=== PATIENT | female | born 1980 | race Caucasian/White ===

== ENCOUNTER → 2021-02-01 | Outpatient (CLI) | payer OTHER ==
--- NOTE | 2021-02-01 14:42 | RAD ---
[facility] DIAGNOSTIC BILAT, US BREAST RT 02/01/2021 1:00 PM INDICATION: Right breast lump. COMPARISON: None available TECHNIQUE: 2D CC and MLO projections were obtained of each breast. Targeted sonographic evaluation th e right breast was performed. FINDINGS: Breast density: Category C: The breats are heterogeneously dense, which may obscure small masses. Right breast: There are no suspicious microcalcifications, masses or areas of architectural distortio n. Left breast: There are no suspicious microcalcifications, masses or areas of architectural distortion . Targeted ultrasound evaluation of the right breast was performed at the 6:00 position, 5 cm from the nipple in the area of concern, 6:00 position 2 cm from the nipple, 5:00 position, 7:00 position and r etroareolar region. At the 6:00 position, 2 cm from the nipple there is a 5 x 4 x 3 mm circumscribed hypoechoic mass with through transmission and suggestion of internal septations. Probably benign findings with differenti al considerations including a complicated or complex cyst. IMPRESSION: 1. Probably benign findings of the right breast with a 5 x 4 x 3 mm mass which may represent a compli cated cyst versus less likely a complex cyst. 6 month follow-up right mammogram and breast ultrasound is recommended. 2. Negative left mammogram. BI-RADS category: 3; Probably Benign Recommendations: Six-month follow-up imaging. Electronically signed by: Tricia Mantilla MD (02/01/2021 2:40 PM) [id number]
== END ==
LOC: MAMMO 12:53
PROVIDERS: ATTEND Preventive Medicine Occupational Medicine
DX: N63.10 Unspecified lump in the right breast, unspecified quadrant (principal)
CPT/HCPCS: 76641; 77066